=== PATIENT | male | born 1965 | race African-American/Black ===

== ENCOUNTER 2022-06-19 16:51 | Emergency (ER) | payer OTHER ==
[2022-06-19 16:57] VITALS: TEMP 97.5
--- NOTE | 2022-06-19 17:49 | ED ---
General Adult HPI - General Source: patient, RN notes reviewed Mode of arrival: ambulatory Limitations: no limitations <Vicki De - Last Filed: 06/19/22 17:47> <Prabha Carpenter - Last Filed: 06/26/22 22:36> - General Chief complaint: Neuro Symptoms/Deficit Stated complaint: Rt arm numbness Time Seen by Provider: 06/19/22 17:47 - History of Present Illness Initial comments: Patient is a 57-year-old male who presents to the emergency department for chest pain. It started 4 days ago. Patient states it feels like pressure on the left side of his chest which is worse with breathing. He has exertional shortness of breath. Denies sweating, nausea, vomiting. Denies history of cardiac disease. Patient is a tobacco user. Today he presented to the [facility] for cocaine use and was sent to the emergency department for evaluation. (Vicki De) 57-year-old male presents today stating that 3 days ago he had pain in the left side of his chest which radiated to his arm and back. Symptoms started after he was using crack cocaine. He did have some shortness of breath. No associated nausea or vomiting. Denies history of cardiac problems. He also reports that he had some numbness in his right bicep. Denies any numbness or tingling in his hand or leg. No headaches or visual changes. No fevers or chills. Patient completely asymptomatic at this time however he is at [facility] for rehab. He told him today that he had chest pain a couple of days ago and they stated that he needed to be medically cleared before he could admitted for rehab. No other alleviating, precipitating or modifying factors (Prabha Carpenter) - Related Data Home Medications Medication Instructions Recorded Confirmed No Known Home Medications 06/19/22 06/19/22 Allergies Allergy/AdvReac Type Severity Reaction Status Date / Time Fish Containing Products Allergy Unknown Verified 06/19/22 21:55 [Fish] mushroom Allergy Swelling Verified 06/19/22 21:55 pineapple Allergy Swelling Verified 06/19/22 21:55 strawberry Allergy Swelling Verified 06/19/22 21:55 Review of Systems ROS Other: All systems not noted in ROS Statement are negative. <Vicki De - Last Filed: 06/19/22 17:47> ROS Other: All systems not noted in ROS Statement are negative. <Prabha Carpenter - Last Filed: 06/26/22 22:36> ROS Statement: Those systems with pertinent positive or pertinent negative responses have been documented in the HPI. Past Medical History Past Medical History: No Reported History History of Any Multi-Drug Resistant Organisms: None Reported Past Surgical History: Back Surgery, Hernia Repair Smoking Status: Current every day smoker Past Alcohol Use History: Abuse, Daily, Heavy Past Drug Use History: Cocaine <Vicki De - Last Filed: 06/19/22 17:47> General Exam Limitations: no limitations <Vicki De - Last Filed: 06/19/22 17:47> General appearance: alert, in no apparent distress Head exam: Present: atraumatic, normocephalic, normal inspection Eye exam: Present: normal appearance, PERRL, EOMI. Absent: scleral icterus, conjunctival injection, periorbital swelling ENT exam: Present: normal exam, mucous membranes moist Neck exam: Present: normal inspection. Absent: tenderness, meningismus, lymphadenopathy Respiratory exam: Present: normal lung sounds bilaterally. Absent: respiratory distress, wheezes, rales, rhonchi, stridor Cardiovascular Exam: Present: regular rate, normal rhythm, normal heart sounds. Absent: systolic murmur, diastolic murmur, rubs, gallop, clicks GI/Abdominal exam: Present: soft, normal bowel sounds. Absent: distended, tenderness, guarding, rebound, rigid Extremities exam: Present: normal inspection, full ROM, normal capillary refill. Absent: tenderness, pedal edema, joint swelling, calf tenderness Back exam: Present: normal inspection Neurological exam: Present: alert, oriented X3, CN II-XII intact Psychiatric exam: Present: normal affect, normal mood Skin exam: Present: warm, dry, intact, normal color. Absent: rash <Prabha Carpenter - Last Filed: 06/26/22 22:36> Course Vital Signs 06/19/22 06/19/22 06/19/22 16:54 21:20 22:13 Temperature 97.5 F L Pulse Rate 80 95 78 Respiratory 18 85 H 16 Rate Blood Pressure 129/82 142/100 132/65 O2 Sat by Pulse 99 99 99 Oximetry 03/06/19/22 06/19/22 23:17 23:20 23:30 Temperature Pulse Rate 82 81 82 Respiratory 15 17 17 Rate Blood Pressure 130/91 130/91 130/91 O2 Sat by Pulse 98 98 100 Oximetry 06/19/22 06/19/22 06/20/22 23:40 23:50 00:00 Temperature Pulse Rate 84 78 78 Respiratory 19 18 16 Rate Blood Pressure 130/91 130/91 130/91 O2 Sat by Pulse 98 99 98 Oximetry 06/20/22 00:10 Temperature Pulse Rate 82 Respiratory Rate Blood Pressure 127/89 O2 Sat by Pulse 100 Oximetry EKG Findings - EKG Comments: EKG Findings:: EKG demonstrates sinus rhythm with a rate of 88. TN interval 128. QRS 87. QTC of 431. No acute ST segment elevations or depressions <Prabha Carpenter - Last Filed: 06/26/22 22:36> Medical Decision Making - Lab Data Result diagrams: 06/19/22 21:16 06/19/22 21:16 <Prabha Carpenter - Last Filed: 06/26/22 22:36> - Medical Decision Making Was pt. sent in by a medical professional or institution (, PA, SHAFT SINKER, urgent care, hospital, or fci...) When possible be specific @ -[facility] Did you speak to anyone other than the patient for history (EMS, parent, family, police, friend...)? What history was obtained from this source @ -No Did you review nursing and triage notes (agree or disagree)? Why? @ -I reviewed and agree with nursing and triage notes Were old charts reviewed (outside hosp., previous admission, EMS record, old EKG, old radiological studies, urgent care reports/EKG's, fci records)? Report findings @ -No old charts were reviewed Differential Diagnosis (chest pain, altered mental status, abdominal pain women, abdominal pain men, vaginal bleeding, weakness, fever, dyspnea, syncope, headache, dizziness, GI bleed, back pain, seizure, CVA, palpatations, mental health, musculoskeletal)? @ -acs, nstemi, stemi, coronary vasospasm EKG interpreted by me (3pts min.). @ -yes X-rays interpreted by me (1pt min.). @ -yes CT interpreted by me (1pt min.). @ -yes U/S interpreted by me (1pt. min.). @ -None done What testing was considered but not performed or refused? (CT, X-rays, U/S, labs)? Why? @ -None What meds were considered but not given or refused? Why? @ -None Did you discuss the management of the patient with other professionals (professionals i.e. Dr., PA, SHAFT SINKER, lab, RT, psych nurse, social work lecturer, net developer, teacher, prison officer, shoe caser)? Give summary @ -No Was smoking cessation discussed for >3mins.? @ -No Was critical care preformed (if so, how long)? @ -No Were there social determinants of health that impacted care today? How? (Homelessness, low income, unemployed, alcoholism, drug addiction, transportation, low edu. Level, literacy, decrease access to med. care, intermediate, rehab)? @ -No Was there de-escalation of care discussed even if they declined (Discuss DNR or withdrawal of care, Hospice)? DNR status @ -No What co-morbidities impacted this encounter? (DM, HTN, Smoking, COPD, CAD, Cancer, CVA, ARF, Chemo, Hep., AIDS, mental health diagnosis, sleep apnea, morbid obesity)? @ -cocaine use Was patient admitted / discharged? Hospital course, mention meds given and route, prescriptions, significant lab abnormalities, going to OR and other pertinent info. @ -Upon arrival patient was placed into room 25. A thorough history and physical exam is performed. Pelvic EKG was performed. Laboratory studies are conducted. D-dimer high and therefore patient is sent for CT. Troponin is negative. CT negative for PE. Discussed results the patient. Patient is cleared for discharge back to [facility] at this time. Instructed to stop using cocaine. He needs to follow-up for full cardiac workup for which she was agreeable. Return for any new or worsening symptoms. Patient agreeable and discharged home in stable condition Undiagnosed new problem with uncertain prognosis? @ -yes Drug Therapy requiring intensive monitoring for toxicity (Heparin, Nitro, Insu eliza, Cardizem)? @ -No Were any procedures done? @ -No Diagnosis/symptom? @ -acute chest pain Acute, or Chronic, or Acute on Chronic? @ -acute Uncomplicated (without systemic symptoms) or Complicated (systemic symptoms)? @ -complicated Side effects of treatment? @ -No Exacerbation, Progression, or Severe Exacerbation? @ -No Poses a threat to life or bodily function? How? (Chest pain, USA, AR, pneumonia, PE, COPD, DKA, ARF, appy, cholecystitis, CVA, Diverticulitis, Homicidal, Suicidal, threat to staff... and all critical care pts) @ -yes (Prabha Carpenter) - Lab Data Lab Results 06/19/22 06/19/22 06/19/22 Range/Units 21:11 21:16 21:16 WBC 9.5 (3.8-10.6) k/uL RBC 5.00 (4.30-5.90) m/uL Hgb 15.1 (13.0-17.5) gm/dL Hct 45.2 (39.0-53.0) % MCV 90.4 (80.0-100.0) fL MCH 30.2 (25.0-35.0) pg MCHC 33.4 (31.0-37.0) g/dL RDW 13.6 (11.5-15.5) % Plt Count 354 (150-450) k/uL MPV 7.0 Neutrophils % 68 % Lymphocytes % 21 % Monocytes % 6 % Eosinophils % 2 % Basophils % 1 % Neutrophils # 6.5 (1.3-7.7) k/uL Lymphocytes # 2.0 (1.0-4.8) k/uL Monocytes # 0.5 (0-1.0) k/uL Eosinophils # 0.2 (0-0.7) k/uL Basophils # 0.1 (0-0.2) k/uL PT 9.9 (9.0-12.0) sec INR 0.9 (<1.2) APTT 25.4 (22.0-30.0) sec D-Dimer 0.80 H (<0.60) mg/L FEU Sodium (137-145) mmol/L Potassium (3.5-5.1) mmol/L Chloride (98-107) mmol/L Carbon Dioxide (22-30) mmol/L Anion Gap mmol/L BUN (9-20) mg/dL Creatinine (0.66-1.25) mg/dL Est GFR (CKD-EPI)AfAm (>60 ml/min/1.73 sqM) Est GFR (CKD-EPI)NonAf (>60 ml/min/1.73 sqM) Glucose (74-99) mg/dL Calcium (8.4-10.2) mg/dL Magnesium (1.6-2.3) mg/dL Total Bilirubin (0.2-1.3) mg/dL AST (17-59) U/L ALT (4-49) U/L Alkaline Phosphatase (38-126) U/L Troponin I (0.000-0.034) ng/mL Total Protein (6.3-8.2) g/dL Albumin (3.5-5.0) g/dL Urine Color Yellow Urine Appearance Clear (Clear) Urine pH 6.0 (5.0-8.0) Ur Specific [place] 1.023 (1.001-1.035) Urine Protein Negative (Negative) Urine Glucose (UA) Negative (Negative) Urine Ketones Negative (Negative) Urine Blood Negative (Negative) Urine Nitrite Negative (Negative) Urine Bilirubin Negative (Negative) Urine Urobilinogen 2.0 (<2.0) mg/dL Ur Leukocyte Esterase Negative (Negative) 06/19/22 06/19/22 Range/Units 21:16 21:16 WBC (3.8-10.6) k/uL RBC (4.30-5.90) m/uL Hgb (13.0-17.5) gm/dL Hct (39.0-53.0) % MCV (80.0-100.0) fL MCH (25.0-35.0) pg MCHC (31.0-37.0) g/dL RDW (11.5-15.5) % Plt Count (150-450) k/uL MPV Neutrophils % % Lymphocytes % % Monocytes % % Eosinophils % % Basophils % % Neutrophils # (1.3-7.7) k/uL Lymphocytes # (1.0-4.8) k/uL Monocytes # (0-1.0) k/uL Eosinophils # (0-0.7) k/uL Basophils # (0-0.2) k/uL PT (9.0-12.0) sec INR (<1.2) APTT (22.0-30.0) sec D-Dimer (<0.60) mg/L FEU Sodium 138 (137-145) mmol/L Potassium 3.9 (3.5-5.1) mmol/L Chloride 102 (98-107) mmol/L Carbon Dioxide 31 H (22-30) mmol/L Anion Gap 5 mmol/L BUN 15 (9-20) mg/dL Creatinine 0.81 (0.66-1.25) mg/dL Est GFR (CKD-EPI)AfAm >90 (>60 ml/min/1.73 sqM) Est GFR (CKD-EPI)NonAf >90 (>60 ml/min/1.73 sqM) Glucose 173 H (74-99) mg/dL Calcium 9.3 (8.4-10.2) mg/dL Magnesium 2.2 (1.6-2.3) mg/dL Total Bilirubin 0.5 (0.2-1.3) mg/dL AST 23 (17-59) U/L ALT 23 (4-49) U/L Alkaline Phosphatase 98 (38-126) U/L Troponin I 0.013 (0.000-0.034) ng/mL Total Protein 7.1 (6.3-8.2) g/dL Albumin 4.2 (3.5-5.0) g/dL Urine Color Urine Appearance (Clear) Urine pH (5.0-8.0) Ur Specific [place] (1.001-1.035) Urine Protein (Negative) Urine Glucose (UA) (Negative) Urine Ketones (Negative) Urine Blood (Negative) Urine Nitrite (Negative) Urine Bilirubin (Negative) Urine Urobilinogen (<2.0) mg/dL Ur Leukocyte Esterase (Negative) Disposition <Vicki De - Last Filed: 06/19/22 17:47> Is patient prescribed a controlled substance at d/c from ED?: No Time of Disposition: 23:57 <Prabha Carpenter - Last Filed: 06/26/22 22:36> Clinical Impression: Chest pain Disposition: HOME SELF-CARE Condition: Stable Instructions (If sedation given, give patient instructions): Chest Pain (ED) Additional Instructions: Please follow up with your PCP in 2-4 days. Return for any new or worsening symptoms. Referrals: None,Stated [Primary Care Provider] - 1-2 days
--- NOTE | 2022-06-19 18:22 | XR ---
EXAMINATION TYPE: XR chest 2V DATE OF EXAM: 06/19/2022 COMPARISON: NONE HISTORY: Wrist pain TECHNIQUE: 2 views FINDINGS: Heart and mediastinum are normal. Lungs are clear. Diaphragm is normal. Bony thorax is inta ct. IMPRESSION: Normal chest.
[2022-06-19 21:34] LABS: Basophils # (A) 0.1 k/uL (0-0.2); Basophils % (A) 1 %; Eosinophils # (A) 0.2 k/uL (0-0.7); Eosinophils % (A) 2 %; HCT 45.2 % (39.0-53.0); HGB 15.1 gm/dL (13.0-17.5); Lymphocytes % (A) 21 %; MCH 30.2 pg (25.0-35.0); MCHC 33.4 g/dL (31.0-37.0); MCV 90.4 fL (80.0-100.0); Monocytes # (A) 0.5 k/uL (0-1.0); Monocytes % (A) 6 %; Neutrophils # (A) 6.5 k/uL (1.3-7.7); Neutrophils % (A) 68 %; Platelet Count 354 k/uL (150-450); RDW 13.6 % (11.5-15.5); WBC 9.5 k/uL (3.8-10.6)
[2022-06-19 21:35] LABS: Appearance,Urine Clear (Clear); Bilirubin,Urine Negative (Negative); Blood,Urine Negative (Negative); Color,Urine Yellow; Glucose,Urine (UA) Negative (Negative); Ketones,Urine Negative (Negative); Leukocyte Esterase,Urine Negative (Negative); Nitrite,Urine Negative (Negative); Protein,Urine Negative (Negative); Specific Gravity,Urine 1.023 (1.001-1.035)
[2022-06-19 21:50] LABS: Chloride 102 mmol/L (98-107); INR 0.9 (<1.2); Partial Thromboplastin Time 25.4 sec (22.0-30.0); Prothrombin Time 9.9 sec (9.0-12.0)
[2022-06-19 21:51] LABS: ALT 23 U/L (4-49); AST 23 U/L (17-59); African American GFR (CKD) >90 (>60 ml/min/1.73 sqM); Albumin 4.2 g/dL (3.5-5.0); Alkaline Phosphatase 98 U/L (38-126); Anion Gap 5 mmol/L; Blood Urea Nitrogen 15 mg/dL (9-20); Calcium 9.3 mg/dL (8.4-10.2); Carbon Dioxide 31 mmol/L (22-30); Glucose 173 mg/dL (74-99); Magnesium 2.2 mg/dL (1.6-2.3); Non-African American GFR(CKD) >90 (>60 ml/min/1.73 sqM); Potassium 3.9 mmol/L (3.5-5.1); Sodium 138 mmol/L (137-145); Total Bilirubin 0.5 mg/dL (0.2-1.3); Total Protein 7.1 g/dL (6.3-8.2)
[2022-06-19 22:14] VITALS: RESP 16
--- NOTE | 2022-06-19 23:43 | CT ---
EXAMINATION TYPE: CT chest angio for PE DATE OF EXAM: 06/19/2022 COMPARISON: None HISTORY: rt arm numbness. elevated d-dimer CT DLP: 285.4 mGycm Automated exposure control for dose reduction was used. CONTRAST: Performed with IV Contrast, patient injected with 80 mL of Isovue 370. There are Three-D postprocessed images. The lungs are clear of consolidation. No pleural effusion. There is some mild bullous pulmonary emphy sema. There is no mediastinal adenopathy. There are no hilar masses. There is normal contrast opacifi cation of the pulmonary arteries. No filling defect. Heart size is normal. No pericardial effusion. Upper abdominal soft tissues are intact. The thoracic spine is intact. Sternum is intact. IMPRESSION: No evidence of pulmonary embolism. Mild bullous pulmonary emphysema.
[2022-06-20 00:18] VITALS: BP 127/89; PULSE 82
== END 2022-06-20 00:27 | disposition home or self-care (01) ==
LOC: EC 16:51
DX: R07.89 Other chest pain (principal); F14.90 Cocaine use, unspecified, uncomplicated; F17.200 Nicotine dependence, unspecified, uncomplicated; Z91.013 Allergy to seafood; Z91.018 Allergy to other foods
CPT/HCPCS: 36415; 93005; 85379; 80053; 83735; 84484; 85025; 85610; 85730; 81003; 71046; 71275; 99285; Q9967